=== PATIENT | female | born 1995 | race Two or more races ===

== ENCOUNTER 2022-12-28 08:41 | Outpatient (CLI) | payer OTHER | END 2022-12-28 09:00 | disposition home or self-care (01) | LOC: RX STUDY 08:41 | PROVIDERS: ATTEND Obstetrics & Gynecology Reproductive Endocrinology | DX: N94.6 Dysmenorrhea, unspecified (principal); N80.00 Endometriosis of the uterus, unspecified; D25.9 Leiomyoma of uterus, unspecified ==